=== PATIENT | female | born 1980 | race Caucasian/White ===

== ENCOUNTER 2023-10-20 15:02 | Emergency (ER) | payer OTHER ==
[~2023-10-20] VITALS: Ht 167.6 cm; Wt 106.6 kg
[2023-10-20] MEDS ORDERED: Tetanus and Diphtheria Toxoid 0.5 ML INJ IM ONE (15:20)
[2023-10-20] MEDS ORDERED: Ampicillin Sod/Sulbactam Sod 3 GM in NS 100 ML IV ONE (15:20)
[2023-10-20] MEDS ORDERED: HYDROmorphone HCl/Pf 1MG SYR IV ONE (15:20)
[2023-10-20] MEDS ORDERED: Ondansetron HCl 2 MG / ML 2ML Vial IV ONE (15:20)
[2023-10-20] MEDS ORDERED: PROZAC2010 PO (16:50)
[2023-10-20] MEDS ORDERED: RX Prepack 6 Tabs Oxycodone 5mg UD ONE (19:55)
== END 2023-10-20 20:03 | disposition home or self-care (01) ==
LOC: ER 15:02
DX: S01.81XA Laceration without foreign body of other part of head, initial encounter (principal); W54.0XXA Bitten by dog, initial encounter; Z88.5 Allergy status to narcotic agent; Z88.8 Allergy status to other drugs, medicaments and biological substances; Z79.899 Other long term (current) drug therapy
CPT/HCPCS: 90471; 90714; 96365; 96366; 96375; 99283-25; A9270; J0295; J1170; J2405